=== PATIENT | male | born 1935 | race Caucasian/White ===

== ENCOUNTER → 2018-12-29 15:09 | Emergency (ER) | payer MEDICARE, BC ==
[~2018-12-29 15:09] MED LIST: Albuterol/Ipratropium NEB.SOL* Albuterol 2.5 MG/Ipratropium 0.5 MG 3 ML INH ONE; LORazepam INJ* 2 MG/ML 1 ML VIAL ONE; Lorazepam PYXIS KEY ONE; Valproic Acid IV(*) 250 MG in NS 0.9% 100 ML* 100 ML IVPB ONE
--- NOTE | 2018-12-29 15:39 | ED ---
Neurological HPI - HPI Summary HPI Summary: LEVEL 5 CAVEAT The patient is an 83 y/o M presenting to [facility] arriving by ambulance accompanied by family from [place] [facility] with chief complaint of new onset seizure with two episodes this morning. Per family, the patient went to stretch his arms this morning when all of a sudden his body went rigid and then started shaking and making a grumbling noise. He became unresponsive for a short amount of time, and then returned to his usual baseline. He had another seizure while at [place] [facility]. The patient has severe dementia but has never had seizures before, and has no other diagnosed health conditions otherwise. Last week, he was in the hospital for PNA, and there was a CXR showing fluid surrounding the lungs with a large mass on the lung. For this, he was on Augmentin, and he was also on another abx for UTI treatment. Today was supposed to the last day in the course. In the ER at [place], the patient had blood work and brain CT taken , but no additional CXR was taken. BRAIN CT FROM [place] [facility]: Markedly limited examination due to motion artifact. No gross mass, bleed, obstructive hydrocephalus or large focus of acute ischemic change identified. Repeat head CT recommended when clinically feasible possibly with sedation. ED physician has reviewed this report. - History of Current Complaint Stated Complaint: NEW ONSET SIEZURE PER EMS Time Seen by Provider: 12/29/18 15:22 Hx Obtained From: Family/Air Export Coordinator, Medical Records Onset/Duration: Sudden Onset, Started hours ago, Resolved Timing: Sudden Onset Onset Severity: Moderate Current Severity: None Seizure Severity: Moderate Number of Seizures: 2 Neurological Deficit Location: Generalized Character: Responsiveness, Other: - rigid body - Allergy/Home Medications Allergies/Adverse Reactions: Allergies Allergy/AdvReac Type Severity Reaction Status Date / Time Penicillins Allergy Unknown Verified 12/29/18 15:26 Reaction Details Home Medications: Home Medications Nitrofurantoin Macrocrystals* [Macrodantin 100 mg*] 100 mg PO BID 12/29/18 [ History Confirmed 12/29/18] PMH/Surg Hx/FS Hx/Imm Hx Endocrine/Hematology History: Denies: Hx Diabetes Cardiovascular History: Denies: Hx Hypercholesterolemia, Hx Hypertension Neurological History: Reports: Hx Dementia - Surgical History Surgery Procedure, Year, and Place: level 5 caveat Infectious Disease History: Denies: Traveled Outside the [place] in Last 30 Days - Family History Known Family History: Positive: Other - pt is level 5 caveat due to dementia - Social History Lives: With Family Alcohol Use: None Hx Substance Use: No Substance Use Type: Reports: None Do You Chew or Dip Tobacco: No Have You Chewed or Dipped Tobacco in the LAST YEAR: No Have You Smoked in the Last Year: No Review of Systems Neurological: Other - seizure activity with rigid body All Other Systems Reviewed And Are Negative: No - Comments Additional Review of Systems Comments: LEVEL 5 CAVEAT Physical Exam - Summary Physical Exam Summary: LEVEL 5 CAVEAT VITAL SIGNS: Reviewed. GENERAL: Patient is an elderly, demented male, who is spitting but is not in any acute distress. Patient is not in any acute respiratory distress. HEAD AND FACE: No signs of trauma. No ecchymosis, hematomas or skull depressions. No sinus tenderness. EYES: PERRLA, EOMI x 2, No injected conjunctiva, no nystagmus. EARS: Hearing grossly intact. Ear canals and tympanic membranes are within normal limits. MOUTH: Poor dental hygiene but oropharynx is otherwise within normal limits. NECK: Supple, trachea is midline, no adenopathy, no JVD, no carotid bruit, no c- spine tenderness, neck with full ROM. CHEST: Symmetric, no tenderness at palpation LUNGS: Clear to auscultation bilaterally. No wheezing or crackles. CVS: Regular rate and rhythm, S1 and S2 present, no murmurs or gallops appreciated. ABDOMEN: Soft, non-tender. No signs of distention. No rebound no guarding, and no masses palpated. Bowel sounds are normal. EXTREMITIES: FROM in all major joints, no edema, no cyanosis or clubbing. NEURO: Alert but not oriented. Neurological deficits consistent with dementia. Speech is normal and follows commands. SKIN: Dry and warm. GCS: 15 Triage Information Reviewed: Yes Vital Signs Reviewed: Yes - Carson Coma Scale Best Eye Response: 4 - Spontaneous Best Motor Response: 6 - Obeys Commands Best Verbal Response: 5 - Oriented Coma Scale Total: 15 Glascow Coma Scale Comments: LEVEL 5 CAVEAT Diagnostics - Laboratory Result Diagrams: 12/29/18 16:37 12/29/18 16:37 Lab Statement: Any lab studies that have been ordered have been reviewed, and results considered in the medical decision making process. - Radiology CXR Radiology Interpretation Completed By: Radiologist Summary of Radiographic Findings: Small right pleural effusion and basilar infiltrate. ED physician has reviewed this report. - EKG 1635 Cardiac Rate: NL - 83 BPM EKG Rhythm: Sinus Rhythm Summary of EKG Findings: No ST elevations Re-Evaluation - Re-Evaluation First Eval Re-Evaluation Time: 17:50 Change: Unchanged Comment: I spoke with the family concerning discharge of the patient and follow up with Dr. Tolentino. Course/Dx - Course Course Of Treatment: The patient is an 83 y/o M presenting to [facility] arriving by ambulance accompanied by family from [place] [facility] with chief complaint of new onset seizure with two episodes this morning. Per family, the patient went to stretch his arms this morning when all of a sudden his body went rigid and then started shaking and making a grumbling noise. He became unresponsive for a short amount of time, and then returned to his usual baseline. He had another seizure while at [facility]. The patient has severe dementia but has never had seizures before, and has no other diagnosed health conditions otherwise. Last week, he was in the hospital for PNA, and there was a CXR showing fluid surrounding the lungs with a large mass on the lung. For this, he was on Augmentin, and he was also on another abx for UTI treatment. Today was supposed to the last day in the course. In the ER at [place], the patient had blood work and brain CT taken, but no additional CXR was taken. Blood work done at [facility] was reviewed. Also of the head CT done at [facility] also was reviewed by me and also by Dr. Tolentino. After Dr. Tolentino saw and examined the patient and he recommends no further testing. He only recommends for the patient to be given Depakote 1 dose and send the patient home with a Depakote prescription as well follow-up with his office in the next couple weeks. Dr. Tolentino discussed all the findings and plan with the patients family members, and they agree. The patient is hemodynamically stable. Blood pressure is 144/99 therefore, he is recommended to follow with the primary care physician for better control of the blood pressure. In the ED course, the patient was given also 1 dose of DuoNeb. Patient is already taking antibiotics for the pneumonia. Therefore, he will continue taking his medication. - Diagnoses Provider Diagnoses: New onset seizure - Physician Notifications Discussed Care Of Patient With: Ousmane Tolentino - neurologist Time Discussed With Above Provider: 15:35 Instructed by Provider To: Other - I spoke with Dr. Tolentino concerning the patient before he arrived in the ED. We reviewed the Brain CT provided by [facility]. He suggests that the patient may need MRIs with and without contrast, but he will come see the patient in the ED first. At 1630, Dr. Tolentino was in the ED and saw the patient. He thinks that the patient is safe for discharge based upon his findings. Discharge - Sign-Out/Discharge Documenting (check all that apply): Patient Departure - Patient will be discharegd home. Patient Received Moderate/Deep Sedation with Procedure: No - Discharge Plan Condition: Stable Disposition: HOME Prescriptions: Divalproex Sodium [Depakote] 250 mg PO BID #30 tab Patient Education Materials: New-Onset Seizure in Adults (ED) Referrals: [facility] [Outside] - 3 Days Ousmane Tolentino MD [Medical Doctor] - 3 Days Additional Instructions: Please take medication as prescribed. FOLLOW UP WITH NEUROLOGY AND YOUR PRIMARY CARE PROVIDER WITHIN ONE WEEK RETURN TO THE ED FOR ANY WORSENING OR NEW SYMPTOMS. - Billing Disposition and Condition Condition: STABLE Disposition: Home - Attestation Statements Document Initiated by Scribe: Yes Documenting Scribe: Loretta Kamara Provider For Whom Med is Documenting (Include Credential): Dr. Levar Fortune MD [place] Attestation: ILoretta scribed for Dr. Levar Fortune MD on 12/29/18 at 2203. Scribe Documentation Reviewed: Yes Provider Attestation: The documentation as recorded by the Loretta mohan accurately reflects the service I personally performed and the decisions made by me, Dr. Levar Fortune MD Status of [place] Document: Viewed
[2018-12-29 16:47] LABS: ABS Eosinophils 0.1 10^3/ul (0-0.6); ABS Lymphocytes 0.8 10^3/ul (1.0-4.8); ABS Monocytes 0.5 10^3/ul (0-0.8); ABS Neutrophils 4.7 10^3/ul (1.5-7.7); Eosinophil % 1.8 %; Hematocrit 35 % (42-52); Hemoglobin 11.3 g/dL (14.0-18.0); Lymphocyte % 12.9 %; Mean Corpuscular HGB Conc 32 g/dL (31-36); Mean Corpuscular Hemoglobin 26 pg (27-31); Mean Corpuscular Volume 81 fL (80-94); Mean Platelet Volume 6.4 fL (7.4-10.4); Platelet Count 250 10^3/uL (150-450); Red Blood Count 4.29 10^6 /uL (4.18-5.48); Red Cell Distribution Width 16 % (10.5-15); White Blood Count 6.1 10^3/uL (3.5-10.8)
[2018-12-29 17:06] LABS: ALT 6 U/L (7-52); AST 14 U/L (13-39); Albumin 3.6 g/dL (3.2-5.2); Albumin/Globulin Ratio 0.9 (1-3); Alkaline Phosphatase 89 U/L (34-104); Anion Gap 6 mmol/L (2-11); Blood Urea Nitrogen 10 mg/dL (6-24); CO2 Carbon Dioxide 29 mmol/L (22-32); Calcium 8.8 mg/dL (8.6-10.3); Chloride 107 mmol/L (101-111); EGFR African American 86.6 (>60); EGFR Non-African American 71.5 (>60); Glucose 97 mg/dL (70-100); Magnesium 2.2 mg/dL (1.9-2.7); Potassium 4.1 mmol/L (3.5-5.0); Sodium 142 mmol/L (135-145); Total Protein 7.6 g/dL (6.4-8.9)
[2018-12-29 17:32] LABS: Alcohol < 10 mg/dL (<10)
--- NOTE | 2018-12-29 19:25 | CONS ---
NEUROLOGY CONSULTATION: DATE OF CONSULT: 12/29/18 LOCATION: He is in the emergency room. REFERRING PHYSICIAN: Dr. Fortune. CHIEF COMPLAINT: New onset seizures. HISTORY OF PRESENT ILLNESS: Barrington Callahan is an 83-year-old man with advanced Alzheimer's disease transferred from [facility] with new onset seizures. He is accompanied by his son in the emergency room exam room as well as his granddaughter who is his main chamfering machine operator. There are other sons and daughters out in the waiting room. He was observed having convulsions lasting about a minute this morning according to the family. There was generalized stiffening of his extremities and then diminished responsiveness. He was brought to [facility] Emergency Room where he had another 1 minute episode. He had a CT scan of the brain, which I reviewed the images which reveal severe atrophy, but no evidence of hemorrhages. 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 He has never had seizures before. He has had Alzheimer's disease for many years. Remains at home with the family. He can walk short distances on some days to the bathroom with assistance only. He does not always recognize family members. He was recently being treated for outpatient pneumonia most recently with Augmentin. PAST MEDICAL HISTORY: His past medical history is mainly notable for dementia, recurrent urinary tract infections. MEDICATIONS: Medications at home consists of Augmentin and nitrofurantoin. ALLERGIES: He is allergic to PENICILLINS. REVIEW OF SYSTEMS: Review of systems from the family is notable for agitation at which point he will start to spit. He has had more phlegm and sputum production in the last week with the pneumonia. He has not had any sweats or chills or fevers that they are aware of. He eats pretty well and has not had any choking episodes that they are aware. They think he has been gradually losing weight, but he has not been weighed in a long time. PHYSICAL EXAM: On examination, he is an elderly gentleman mainly with his eyes closed, mumbling incoherently, but other times mumbling understandable phrases. He is agitated and spits frequently. Lungs are clear anterolaterally. Heart rhythm seems regular. Temperature here is 98.2, blood pressure most recently 180/100, it is more or like 160/90 on the monitor. Heart rates in the 70s and respiratory rate is 22. Oxygen saturation is 99% on 2 L by nasal cannula. Neurologically, I cannot get him to visually track. He does open his eyes. Facial musculature is symmetric. Speech is high pitched and occasionally intelligible. He does not follow commands. When asked if he is hungry, he says yes, when asked if he wants coffee, he says yes. He is restless and moves his limbs restlessly. There are no episodes of stiffness or unresponsiveness. Muscle tone is increased in all limbs. He keeps his legs crossed at the ankles. He is not able provide any meaningful history. DIAGNOSTIC STUDIES/LAB DATA: Laboratory data includes a CT scan as mentioned above. CBC here in the emergency room is notable for hemoglobin of 11.3 and it is otherwise unremarkable. Chemistry profile is notable for a creatinine of 1.6 compared to a creatinine of 1.4 earlier this year. Chemistry profile is otherwise unremarkable. IMPRESSION AND PLAN: Impression is that of new onset seizure, possibly because of his neurodegenerative dementia, but possibly also from brain metastases. We have discussed getting a MRI scan of the brain, which will require sedation. We discussed that if he has an intracranial mass it is not likely that the family would opt to do anything about it. They are conferencing now and deciding whether or not we should pursue sedation and attempt a MRI scan or just treat him empirically with anticonvulsant. My recommendation would be to use Depakote starting 250 mg b.i.d. The patient would probably best be served by getting him home in terms of his high likelihood of having an in hospital delirium if he would be admitted. I will discuss the case with his family once they have discussed it amongst themselves and try to answer their questions. I will also discuss with Dr. Fortune. [id number]/[facility] #: [id number]
[2018-12-29 19:32] VITALS: BP 134/80
== END | disposition home or self-care (01) ==
LOC: ED 15:09
DX: R56.9 Unspecified convulsions (principal); J90 Pleural effusion, not elsewhere classified; R91.8 Other nonspecific abnormal finding of lung field; R94.31 Abnormal electrocardiogram [ECG] [EKG]; F03.90 Unspecified dementia, unspecified severity, without behavioral disturbance, psychotic disturbance, mood disturbance, and anxiety; Z88.0 Allergy status to penicillin
CPT/HCPCS: 36415; 71046; 80053; 80320; 83605; 83735; 84443; 85025; 93005; 96365; 96366; 99283; A9270-GY; G0480; J2060

== ENCOUNTER 2020-05-02 19:55 | Inpatient (IN) ==
[2020-05-02] MEDS ORDERED: Albuterol/Ipratropium NEB.SOL (2.5/0.5 MG) 3 ML NEB.SOLN INH ONE (21:10)
[2020-05-02] MEDS ORDERED: cefTRIAXone 2 GM ADDV.VIAL 2 GM in NS 0.9% 100 ml BAG 100 ML IVPB ONE (21:13)
[2020-05-02] MEDS ORDERED: Azithromycin 500 mg/250 ml NS 500 MG/250 ML BAG IVPB ONE (22:04)
[2020-05-02 22:21] LABS: ABS Lymphocytes 0.7 10^3/ul (1.0-4.8); ABS Monocytes 0.5 10^3/ul (0-0.8); ABS Neutrophils 3.7 10^3/ul (1.5-7.7); Eosinophil % 0.5 %; Hematocrit 34 % (42-52); Lymphocyte % 13.3 %; Mean Corpuscular HGB Conc 32 g/dL (31-36); Mean Corpuscular Hemoglobin 30 pg (27-31); Mean Corpuscular Volume 95 fL (80-94); Platelet Count 263 10^3/uL (150-450); Red Blood Count 3.61 10^6 /uL (4.18-5.48); Red Cell Distribution Width 17 % (10-15); White Blood Count 4.9 10^3/uL (3.5-10.8)
[2020-05-02 22:28] LABS: INR 1.51 (0.82-1.09)
[2020-05-02 22:40] LABS: ALT 6 U/L (7-52); AST 18 U/L (13-39); Albumin 3.1 g/dL (3.2-5.2); Albumin/Globulin Ratio 0.8 (1-3); Alkaline Phosphatase 77 U/L (34-104); Anion Gap 7 mmol/L (2-11); BUN/Creatinine Ratio 28.2 (8-20); Blood Urea Nitrogen 31 mg/dL (6-24); CO2 Carbon Dioxide 27 mmol/L (22-32); Calcium 7.8 mg/dL (8.6-10.3); Chloride 108 mmol/L (101-111); EGFR African American 77.4 (>60); EGFR Non-African American 63.9 (>60); Globulin 3.7 g/dL (2-4); Glucose 112 mg/dL (70-100); Potassium 4.2 mmol/L (3.5-5.0); Sodium 142 mmol/L (135-145); Total Protein 6.8 g/dL (6.4-8.9)
[2020-05-02 22:46] LABS: Troponin I 0.62 ng/mL (<0.03)
[2020-05-02] MEDS ORDERED: NS 0.9% 1000 ml BAG 1,000 ML IV ONE (23:26)
[2020-05-02] MEDS ORDERED: NS 0.9% 1000 ml BAG 1,000 ML IV.FLUID IV ONE (23:29)
[2020-05-02] MEDS ORDERED: Vancomycin 1,000 MG in NS 0.9% 250 ml 250 ML IV ONE (23:30)
[2020-05-02] MEDS ORDERED: NS 0.9% 1000 ml BAG 1,000 ML IV SCH (23:30)
[2020-05-02] MEDS ORDERED: Albuterol 2.5mg/3 ml (0.083%) NEB.SOLN INH PRN (23:34)
[2020-05-03] MEDS ORDERED: Morphine 2 MG/ML SYRINGE IV PRN (00:12)
[2020-05-03] MEDS: Enoxaparin 40 MG/0.4 ML SYR SUBCUT SCH ×2 (01:59→02:03)
[2020-05-03] MEDS ORDERED: metroNIDAZOLE IV 500 MG/100ML 500 MG/100 ML BAG IVPB SCH (02:00)
[2020-05-03] MEDS ORDERED: NS 0.9% 1000 ml BAG 1,000 ML IV ONE (02:33)
[2020-05-03 02:34] LABS: Troponin I 0.42 ng/mL (<0.03)
[2020-05-03] MEDS ORDERED: Lorazepam PYXIS KEY PRN (07:38)
[2020-05-03 10:24] VITALS: BP 83/55
[2020-05-03] MEDS: Morphine 2 MG/ML SYRINGE IV PRN ×7 (14:05→22:17)
[2020-05-03] MEDS: Atropine 1% (ORAL/SL) 15 ML BTL SL PRN ×2 (14:05→16:26)
[2020-05-03] MEDS: LORazepam 2 mg VIAL 1 ml IV PUSH PRN ×3 (14:44→21:45)
[2020-05-03] MEDS ORDERED: cefTRIAXone 1 gm/50 mL NS BAG 1 GM/50 ML BAG IVPB SCH (22:00)
[2020-05-04] MEDS: Morphine 2 MG/ML SYRINGE IV PRN ×5 (04:39→23:29)
[2020-05-04] MEDS: LORazepam 2 mg VIAL 1 ml IV PUSH PRN (09:39)
[2020-05-05] MEDS: LORazepam 2 mg VIAL 1 ml IV PUSH PRN (00:52)
== END 2020-05-05 03:30 | disposition expired | DRG 177 ==
LOC: ED 19:55 → ICU 23:26 → MED 05-03 11:27
PROVIDERS: ADMIT Hospitalist; ATTEND Internal Medicine